=== PATIENT | female | born 1990 | race Caucasian/White ===

== ENCOUNTER 2017-10-05 16:03 | Inpatient (IN) | payer MEDICAID ==
[~2017-10-05] VITALS: Ht 172.7 cm; Wt 78.9 kg
[2017-10-05] MEDS ORDERED: PROMETHAZINE HCL 25 MG TABLET PO PRN (17:15)
[2017-10-05] MEDS ORDERED: ACETAMINOPHEN 325 MG TABLET PO PRN (17:15)
[2017-10-05] MEDS ORDERED: ZOLPIDEM TARTRATE 10 MG TABLET PO PRN (17:15)
[2017-10-05] MEDS ORDERED: OLANZapine 5 MG RAPDIS TABLET PO PRN (17:15)
[2017-10-05] MEDS ORDERED: LORazepam 2 MG TABLET PO PRN (17:15)
[2017-10-05] MEDS ORDERED: MAG HYDROX/AL HYDROX/SIMETH ES 30 ML SUSPENSION UDCUP PO PRN (17:15)
[2017-10-05] MEDS ORDERED: MAGNESIUM HYDROXIDE SUSPENSION 30 ML UDCUP PO PRN (17:15)
[2017-10-05] MEDS ORDERED: LOPERAMIDE HCL 2 MG CAPSULE PO PRN (17:15)
[2017-10-05] MEDS ORDERED: TUBERCULIN, PURIFIED PROTEIN DERIVATIVE 5 TU/0.1 ML SYG ID ONE (17:15)
[2017-10-05] MEDS ORDERED: GuaiFENesin/D-METHORPHAN [SUGAR-FREE] 200-20MG/10 ML SYRUP UDCUP PO PRN (17:15)
[2017-10-05] MEDS ORDERED: HydrOXYzine PAMOATE 50 MG CAPSULE PO PRN (17:15)
[2017-10-05] MEDS ORDERED: LURA60TA PO (18:08)
[2017-10-05] MEDS ORDERED: DIVA500T35 PO (18:08)
[2017-10-05] MEDS: THIAMINE HCL 100 MG TABLET PO SCH (18:21)
[2017-10-05 19:39] VITALS: BP 129/85
[2017-10-05] MEDS: DIVALPROEX SODIUM 500 MG ER TABLET PO SCH (20:40)
[2017-10-05] MEDS: OLANZapine 5 MG RAPDIS TABLET PO SCH (20:40)
[2017-10-06 06:34] VITALS: BP 121/66
[2017-10-06 08:21] LABS: BASOPHILS % (AUTO) 0.6 % (0.0-2.0); EOSINOPHILS % (AUTO) 1.2 % (1.0-6.0); HEMATOCRIT 39.2 % (36-46); HEMOGLOBIN 13.6 g/dL (12.0-16.0); LYMPHOCYTES # (AUTO) 1.7 K/uL (1.0-4.8); LYMPHOCYTES % (AUTO) 32.4 % (22.0-44.0); MEAN CORPUSCULAR HEMOGLOBIN 33.7 pg (26.0-34.0); MEAN CORPUSCULAR HGB CONC 34.7 G/dL (31.0-37.0); MEAN CORPUSCULAR VOLUME 97 fL (80-100); MONOCYTES # (AUTO) 0.8 K/uL (0.1-1.0); MONOCYTES % (AUTO) 14.3 % (2.0-9.0); NEUTROPHILS # (AUTO) 2.7 K/uL (1.8-7.7); NEUTROPHILS % (AUTO) 51.5 % (40.0-70.0); PLATELET COUNT (AUTO) 199 K/uL (150-450); RED BLOOD CELL COUNT(AUTO) 4.03 MIL/uL (4.00-5.20); WHITE BLOOD COUNT (AUTO) 5.3 K/uL (4.5-11.0)
[2017-10-06] MEDS: THIAMINE HCL 100 MG TABLET PO SCH ×2 (08:27→16:31)
[2017-10-06] MEDS: FOLIC ACID 1 MG TABLET PO SCH (08:27)
[2017-10-06] MEDS: MULTIVITAMINS WITH MINERALS, THERAPEUTIC TABLET PO SCH (08:27)
[2017-10-06 08:28] VITALS: BP 104/67
[2017-10-06 08:39] LABS: HEMOGLOBIN A1C 5.2 % (4.5-6.2)
[2017-10-06 09:30] LABS: ALANINE AMINOTRANSFERASE 24 U/L (12-78); ALBUMIN 3.4 g/dL (3.4-5.0); ANION GAP 8 mmol/L (8-16); ASPARTATE AMINOTRANSFERASE 21 U/L (15-37); BILIRUBIN,TOTAL 0.6 mg/dL (0.1-1.0); CALCIUM, TOTAL 8.5 mg/dL (8.8-10.5); CARBON DIOXIDE 28 mmol/L (22-29); CHLORIDE 106 mmol/L (98-107); CREATININE 0.86 mg/dL (0.60-1.30); GLOMERULAR FILTR. RATE CALC > 60 mL/min (>60); POTASSIUM 3.7 mmol/L (3.5-5.1); SODIUM SERUM 142 mmol/L (136-145); THYROID STIMULATING HORMONE 2.93 uIU/mL (0.36-3.74); TOTAL PROTEIN, SERUM 6.6 g/dL (6.4-8.2); UREA NITROGEN, BLOOD 18 mg/dL (7-18)
[2017-10-06 16:14] VITALS: BP 115/73
[2017-10-06] MEDS: DIVALPROEX SODIUM 500 MG ER TABLET PO SCH (20:37)
[2017-10-06] MEDS: OLANZapine 5 MG RAPDIS TABLET PO SCH (20:38)
[2017-10-07 00:10] VITALS: BP 110/62
[2017-10-07] MEDS: FLUoxetine HCL 20 MG CAPSULE PO SCH (08:16)
[2017-10-07] MEDS: MULTIVITAMINS WITH MINERALS, THERAPEUTIC TABLET PO SCH (08:16)
[2017-10-07] MEDS: THIAMINE HCL 100 MG TABLET PO SCH ×2 (08:16→16:02)
[2017-10-07] MEDS: FOLIC ACID 1 MG TABLET PO SCH (08:16)
[2017-10-07] MEDS: NALTREXONE HCL 50 MG TABLET PO SCH (08:16)
[2017-10-07 08:20] VITALS: BP 108/56
[2017-10-07 16:11] VITALS: BP 103/61
[2017-10-07] MEDS: DIVALPROEX SODIUM 500 MG ER TABLET PO SCH (20:03)
[2017-10-07] MEDS: OLANZapine 5 MG RAPDIS TABLET PO SCH (20:03)
[2017-10-08 00:23] VITALS: BP 101/61
[2017-10-08 08:13] VITALS: BP 108/64
[2017-10-08] MEDS: FLUoxetine HCL 20 MG CAPSULE PO SCH (08:35)
[2017-10-08] MEDS: NALTREXONE HCL 50 MG TABLET PO SCH (08:35)
[2017-10-08] MEDS: THIAMINE HCL 100 MG TABLET PO SCH ×2 (08:35→16:19)
[2017-10-08] MEDS: FOLIC ACID 1 MG TABLET PO SCH (08:35)
[2017-10-08] MEDS: MULTIVITAMINS WITH MINERALS, THERAPEUTIC TABLET PO SCH (08:35)
[2017-10-08 16:09] VITALS: BP 110/67
[2017-10-08] MEDS: OLANZapine 5 MG RAPDIS TABLET PO SCH (20:05)
[2017-10-08] MEDS: DIVALPROEX SODIUM 500 MG ER TABLET PO SCH (20:05)
[2017-10-09 03:32] VITALS: BP 113/60
[2017-10-09 08:06] VITALS: BP 111/70
[2017-10-09] MEDS: MULTIVITAMINS WITH MINERALS, THERAPEUTIC TABLET PO SCH (08:27)
[2017-10-09] MEDS: NALTREXONE HCL 50 MG TABLET PO SCH (08:27)
[2017-10-09] MEDS: FOLIC ACID 1 MG TABLET PO SCH (08:27)
[2017-10-09] MEDS: THIAMINE HCL 100 MG TABLET PO SCH ×2 (08:27→16:06)
[2017-10-09] MEDS: FLUoxetine HCL 20 MG CAPSULE PO SCH (08:27)
[2017-10-09 16:07] VITALS: BP 121/64
[2017-10-09] MEDS: DIVALPROEX SODIUM 500 MG ER TABLET PO SCH (20:30)
[2017-10-09] MEDS: OLANZapine 5 MG RAPDIS TABLET PO SCH (20:30)
[2017-10-09] MEDS ORDERED: FLUO20CA30 PO (20:42)
[2017-10-09] MEDS ORDERED: OLAN5TAB40 PO (20:42)
[2017-10-09] MEDS ORDERED: NALT50TA PO (20:42)
[2017-10-09] MEDS ORDERED: DIVA500T69 PO (20:42)
== END 2017-10-09 22:00 | disposition home or self-care (01) | DRG 753 ==
LOC: B2S 17:32
PROVIDERS: ADMIT Psychiatry & Neurology Psychiatry; ATTEND Psychiatry & Neurology Psychiatry
DX: F31.9 Bipolar disorder, unspecified (principal); F25.9 Schizoaffective disorder, unspecified; R45.851 Suicidal ideations; Z91.19 Patient's noncompliance with other medical treatment and regimen; F17.210 Nicotine dependence, cigarettes, uncomplicated; Z59.0 Homelessness; Z65.3 Problems related to other legal circumstances; G47.00 Insomnia, unspecified; Z79.899 Other long term (current) drug therapy
CPT/HCPCS: 83036; 84439; 84443; 86592; 93005

== ENCOUNTER 2019-03-14 18:58 | Emergency (ER) | payer MEDICAID, OTHER ==
[~2019-03-14 18:58] MED LIST: DIVA500T69 PO; FLUO20CA30 PO; NALT50TA PO; OLAN5TAB40 PO
== END 2019-03-14 19:30 | disposition left against medical advice (07) ==
LOC: EMS 18:58
DX: Z00.00 Encounter for general adult medical examination without abnormal findings (principal); Z53.21 Procedure and treatment not carried out due to patient leaving prior to being seen by health care provider